=== PATIENT | male | born 1960 | race Caucasian/White ===

== ENCOUNTER 2019-11-06 17:35 | Emergency (ER) | payer MEDICARE, SELFPAY ==
[2019-11-06 18:02] VITALS: BP 164/77; PULSE 88; RESP 18; TEMP 37.1; O2SAT 93; BMI 30.4
[2019-11-06 18:14] VITALS: BP 164/77; PULSE 84; RESP 20; TEMP 37.9; O2SAT 94
--- NOTE | 2019-11-06 18:57 | XRR_ITS ---
PROCEDURE INFORMATION: Exam: XR Chest, 1 View Exam date and time: 11/06/2019 7:14 PM Age: 59 years old Clinical indication: Fever TECHNIQUE: Imaging protocol: XR of the chest Views: 1 view. COMPARISON: No relevant prior studies available. FINDINGS: Lungs: Tiny pulmonary nodule left mid lung overlying the rib most likely granuloma. No visible active interstitial or alveolar airspace disease. Pleural space: Unremarkable. No pleural effusion. No pneumothorax. Heart/Mediastinum: Unremarkable. No cardiomegaly. Bones/joints: Unremarkable. Other findings: Suspected mislabeled left versus right. XR/XR chest 1V portable [id number] IMPRESSION: Nonacute.
[2019-11-06 19:15] LABS: Basophils % 0.4 %; Eosinophils % 0.1 %; Hematocrit 40.3 % (42.0-52.0); Hemoglobin 13.2 g/dL (11.7-16.6); Lymphocytes % 10.9 %; Mean Corpuscular HGB Conc 32.8 g/dL (30.0-36.0); Mean Corpuscular Hemoglobin 29.7 pg (28.0-34.0); Mean Corpuscular Volume 90.8 fL (80-94); Monocytes % 10.5 %; Neutrophils # 7.03 10^3/uL (1.8-7.7); Neutrophils % 77.9 %; Nucleated Red Blood Cells % 0 %; Platelet Count 201 10^3/cmm (130-400); Red Blood Count 4.44 10^6/uL (4.1-5.3); Red Cell Distribution Width 12.7 % (12.1-15.1)
[2019-11-06] MEDS: sodium chloride 0.9% 1,000 ML 999 ML IV ×2 (19:20→21:35)
[2019-11-06 19:28] LABS: INR 1.01 (0.8-1.2)
[2019-11-06 19:29] LABS: Fibrinogen 601 mg/dL (174-498)
[2019-11-06 19:31] LABS: D Dimer 0.98 ug/mIFEU (0-0.59)
[2019-11-06 19:38] LABS: Alanine Aminotransferase 19 U/L (0-41); Albumin Level 3.8 g/dL (3.5-5.2); Alkaline Phosphatase 62 IU/L (40-130); Aspartate Amino Transferase 21 U/L (0-40); Blood Urea Nitrogen 13 mg/dL (8-23); C Reactive Protein 61.4 mg/L (0.0-4.9); Calcium 8.5 mg/dL (8.5-10.5); Carbon Dioxide 24 mmol/L (22-29); Chloride 96 mmol/L (98-107); Creatine Phosphokinase 136 U/L (39-308); Ferritin 371 ng/mL (30-400); Globulin 4.1 g/dL (1.3-4.6); Glucose 96 mg/dL (65-115); Lipase 35 U/L (13-60); Osmolality Calculated 276 mOsm/kg (285-295); Sodium 133 mmol/L (136-145); Total Bilirubin 0.4 mg/dL (0.15-1.2); Total Protein 7.9 g/dL (6.6-8.7)
[2019-11-06 19:52] LABS: Anion Gap 16.8 (5-19); Lactate Dehydrogenase 249 U/L (135-225); Potassium 3.8 mmol/L (3.5-5.1)
[2019-11-06 20:09] VITALS: BP 121/68; PULSE 81; RESP 18; O2SAT 93
[2019-11-06 20:13] LABS: Lactic Sepsis W/Reflex 1.6 mmol/L (0.5-2.2)
[2019-11-06 20:21] LABS: SARS Covid-2 Antigen Positive (Negative)
[2019-11-06 20:39] LABS: Influenza A by IFA Negative (Negative); Influenza B by IFA Negative (Negative)
[2019-11-06 21:00] VITALS: BP 124/78; PULSE 84; RESP 24; O2SAT 94
--- NOTE | 2019-11-06 21:47 | ED_ITS ---
HPI - Nausea/Vomiting/Diarrhea General: Chief complaint: Nausea/Vomiting/Diarrhea Stated complaint: n/d Time Seen by Provider: 11/06/19 17:58 Source: patient and family () Mode of arrival: ambulatory Limitations: no limitations History of Present Illness: HPI Narrative: 59-year-old male who presents to the emergency department with a 3-day history of diarrhea. He denies any nausea or vomiting. Denies abdominal pain. He feels weak and dehydrated. He denies any sick contacts. MD elicited complaint: diarrhea Onset (ago): day(s) (3) Description of diarrhea: watery Associated nausea: No Associated abdominal pain: No Severity: moderate Exacerbating factors: none Relieving factors: none Associated symtoms: Reports fatigue, fevers/chills, anorexia and malaise; Denies altered mental status, anxiety, bloating, change in vision, chest pain, cough, diaphoresis, decreased urine output, dizziness, dysuria, epistaxis, fecal incontinence, headache(s), myalgias, nausea, numbness, palpitations, rash, short of breath, syncope, tenesmus, tinnitus or weakness Review of Systems General: Reports: 10 or more systems reviewed and unremarkable except in HPI and below Const: Reports: fatigue and malaise; Denies: diaphoresis Eyes: Denies: change in vision ENMT: Denies: tinnitus or epistaxis Card: Denies: chest pain, palpitations or syncope Resp: Denies: dyspnea, productive cough or non-productive cough GI: Denies: nausea, bloating or fecal incontinence : Denies: dysuria Musc: Denies: neck pain, back pain or extremity swelling Skin/Breast: Denies: rash, pruritus or erythema Neuro: Denies: headache(s) or dizziness Psych: Denies: anxiety Endo: Denies: polyuria, polydipsia or tired all the time PFSH ED PFSH: Social History Smoking and tobacco status: never smoked Alcohol intake: never Lives independently: No Household members: spouse Housing: House Marital status: Number of children: 3 Current occupational status: disabled Sexually active: No Special rajeev needs: No Physical Exam Const: COMMON NORMALS: no acute distress, average body habitus, patient oriented x3, no limitations, healthy appearing, alert and well nourished EXAM LIMITATIONS: no altered mental status HENMT: COMMON NORMALS: normocephalic, atraumatic and moist oral mucous membranes HEAD & SCALP: normocephalic and atraumatic Neck/C-Spine: COMMON NORMALS: no meningeal signs and no JVD Resp: COMMON NORMALS: normal respiratory effort, No retractions, No use of accessory muscles, clear to auscultation bilaterally and percussion normal AUSCULTATION: clear to auscultation bilaterally PERCUSSION: percussion normal Cardio: COMMON NORMALS: no JVD, regular rate, regular rhythm, S1 normal heart sound present, S2 normal heart sound present, No gallops present (Cardio), No clicks present (Cardio), No murmurs present (Cardio), No rub (Cardio) and Peripheral pulses 2+ throughout RATE: regular rate RHYTHM: regular rhythm HEART SOUNDS: S1 normal heart sound present and S2 normal heart sound present PERIPHERAL PULSES: Peripheral pulses 2+ throughout GI: COMMON NORMALS: Normal to inspection, nondistended, normoactive bowel sounds present, Soft to palpation, non-tender, No hepatosplenomegaly present, no masses and no bruits PALPATION: Yes Soft to palpation and Yes No hepatosplenomegaly present : COMMON NORMALS: Yes no CVA tenderness BLADDER/KIDNEY EXAM: Yes no CVA t enderness Back/Pelvis: COMMON NORMALS: no CVA tenderness Extremity: COMMON NORMALS: normal to inspection, full ROM, capillary refill normal, no calf tenderness and no pedal edema Neuro: COMMON NORMALS: patient oriented x3 SENSORIUM/ORIENTATION: Yes alert MENINGEAL SIGNS: Yes no meningeal signs Skin: COMMON NORMALS: no rashes or lesions noted, no wounds, turgor normal, no jaundice, no petechiae and no mottling GENERAL SKIN EXAM: no rashes or lesions noted and turgor normal Course Reevaluation(s): Reevaluation #1: Discussed his lab and imaging findings with him. He tested positive for COVID-19 viral infection. Other labs unremarkable. His pulse oxygenation has been good ranging between 94 and 95 on room air. Chest x-ray was fine. Advised that he does not want admission criteria and he is advised to get a pulse oximeter and monitor his respiratory status. He is told that if he becomes hypoxic, with pulse oximetry reading less than or equal to 90 then he needs to return for evaluation. He should also return if he has any concerns such as dyspnea. Patient and his voiced understanding and they are in agreement with the plan Time: 21:47 Vital Signs: Vital signs: Vital Signs Temperature 99.9 F H 11/06/19 22:37 Pulse Rate 76 11/06/19 22:37 Respiratory Rate 22 H 11/06/19 22:37 Blood Pressure 132/64 11/06/19 22:37 Pulse Oximetry 94 11/06/19 22:37 MDM - Nausea/Vomiting/Diarrhea MDM Narrative: Medical decision making narrative: 59-year-old gentleman with a viral enteritis. He has enteritis secondary to COVID-19. He is hemodynamically stable, pulse oximetry reading has been fine on room air. He is discharged home on conservative measures Medical Records: Attestation: I reviewed the patient's medical records. Lab Data: Attestation: I reviewed the patient's lab results. Labs: Lab Results 11/06/19 11/06/19 11/06/19 Range/Units 18:42 18:42 18:42 WBC 9.0 (4.0-10.0) 10^3/ uL RBC 4.44 (4.1-5.3) 10^6/u L Hgb 13.2 (11.7-16.6) g/dL Hct 40.3 L (42.0-52.0) % MCV 90.8 (80-94) fL MCH 29.7 (28.0-34.0) pg MCHC 32.8 (30.0-36.0) g/dL RDW 12.7 (12.1-15.1) % Plt Count 201 (130-400) 10^3/c mm MPV 9.0 (7.4-10.4) fL Neut % (Auto) 77.9 % Lymph % (Auto) 10.9 % [place] % (Auto) 10.5 % Eos % (Auto) 0.1 % Baso % (Auto) 0.4 % Neut # (Auto) 7.03 (1.8-7.7) 10^3/u L Lymph # (Auto) 1.0 (0.8-4.8) 10^3/u L [place] # (Auto) 1.0 H (0.2-0.9) 10^3/u L Eos # (Auto) 0.0 (0.0-0.8) 10^3/u L Baso # (Auto) 0.0 (0.0-0.1) 10^3/u L Nucleated RBC % (a uto) 0 % Nucleated RBCs # 0.0 /100WBC PT 13.60 (12.1-14.9) SECO NDS INR 1.01 (0.8-1.2) Fibrinogen 601 H (174-498) mg/dL D-Dimer 0.98 H (0-0.59) ug/mIFE U Sodium 133 L (136-145) mmol/L Potassium 3.8 (3.5-5.1) mmol/L Chloride 96 L (98-107) mmol/L Carbon Dioxide 24 (22-29) mmol/L Anion Gap 16.8 (5-19) BUN 13 (8-23) mg/dL Creatinine 1.0 (0.7-1.2) mg/dL GFR Calculation 76.0 L (90-130) mL/min Glucose 96 (65-115) mg/dL Calculated Osmolal ity 276 L (285-295) mOsm/k g Lactic Acid Calcium 8.5 (8.5-10.5) mg/dL Ferritin 371 (30-400) ng/mL Total Bilirubin 0.4 (0.15-1.2) mg/dL AST 21 (0-40) U/L ALT 19 (0-41) U/L Alkaline Phosphata se 62 (40-130) IU/L Lactate Dehydrogen ase 249 H (135-225) U/L Creatine Kinase 136 (39-308) U/L C-Reactive Protein 61.4 H (0.0-4.9) mg/L Total Protein 7.9 (6.6-8.7) g/dL Albumin 3.8 (3.5-5.2) g/dL Globulin 4.1 (1.3-4.6) g/dL Lipase 35 (13-60) U/L Influenza Type A A g (Negative) Influenza Type B A g (Negative) SARS-CoV-2 Ag (Rap id) (Negative) 11/06/19 11/06/19 11/06/19 Range/Units 18:42 19:30 19:30 WBC (4.0-10.0) 10^3/ uL RBC (4.1-5.3) 10^6/u L Hgb (11.7-16.6) g/dL Hct (42.0-52.0) % MCV (80-94) fL MCH (28.0-34.0) pg MCHC (30.0-36.0) g/dL RDW (12.1-15.1) % Plt Count (130-400) 10^3/c mm MPV (7.4-10.4) fL Neut % (Auto) % Lymph % (Auto) % [place] % (Auto) % Eos % (Auto) % Baso % (Auto) % Neut # (Auto) (1.8-7.7) 10^3/u L Lymph # (Auto) (0.8-4.8) 10^3/u L [place] # (Auto) (0.2-0.9) 10^3/u L Eos # (Auto) (0.0-0.8) 10^3/u L Baso # (Auto) (0.0-0.1) 10^3/u L Nucleated RBC % (a uto) % Nucleated RBCs # /100WBC PT (12.1-14.9) SECO NDS INR (0.8-1.2) Fibrinogen (174-498) mg/dL D-Dimer (0-0.59) ug/mIFE U Sodium (136-145) mmol/L Potassium (3.5-5.1) mmol/L Chloride (98-107) mmol/L Carbon Dioxide (22-29) mmol/L Anion Gap (5-19) BUN (8-23) mg/dL Creatinine (0.7-1.2) mg/dL GFR Calculation (90-130) mL/min Glucose (65-115) mg/dL Calculated Osmolal ity (285-295) mOsm/k g Lactic Acid Cancelled Calcium (8.5-10.5) mg/dL Ferritin (30-400) ng/mL Total Bilirubin (0.15-1.2) mg/dL AST (0-40) U/L ALT (0-41) U/L Alkaline Phosphata se (40-130) IU/L Lactate Dehydrogen ase (135-225) U/L Creatine Kinase (39-308) U/L C-Reactive Protein (0.0-4.9) mg/L Total Protein (6.6-8.7) g/dL Albumin (3.5-5.2) g/dL Globulin (1.3-4.6) g/dL Lipase (13-60) U/L Influenza Type A A g Negative (Negative) Influenza Type B A g Negative (Negative) SARS-CoV-2 Ag (Rap id) Positive H (Negative) 11/06/19 Range/Units 19:34 WBC (4.0-10.0) 10^3/ uL RBC (4.1-5.3) 10^6/u L Hgb (11.7-16.6) g/dL Hct (42.0-52.0) % MCV (80-94) fL MCH (28.0-34.0) pg MCHC (30.0-36.0) g/dL RDW (12.1-15.1) % Plt Count (130-400) 10^3/c mm MPV (7.4-10.4) fL Neut % (Auto) % Lymph % (Auto) % [place] % (Auto) % Eos % (Auto) % Baso % (Auto) % Neut # (Auto) (1.8-7.7) 10^3/u L Lymph # (Auto) (0.8-4.8) 10^3/u L [place] # (Auto) (0.2-0.9) 10^3/u L Eos # (Auto) (0.0-0.8) 10^3/u L Baso # (Auto) (0.0-0.1) 10^3/u L Nucleated RBC % (a uto) % Nucleated RBCs # /100WBC PT (12.1-14.9) SECO NDS INR (0.8-1.2) Fibrinogen (174-498) mg/dL D-Dimer (0-0.59) ug/mIFE U Sodium (136-145) mmol/L Potassium (3.5-5.1) mmol/L Chloride (98-107) mmol/L Carbon Dioxide (22-29) mmol/L Anion Gap (5-19) BUN (8-23) mg/dL Creatinine (0.7-1.2) mg/dL GFR Calculation (90-130) mL/min Glucose (65-115) mg/dL Calculated Osmolal ity (285-295) mOsm/k g Lactic Acid 1.6 Calcium (8.5-10.5) mg/dL Ferritin (30-400) ng/mL Total Bilirubin (0.15-1.2) mg/dL AST (0-40) U/L ALT (0-41) U/L Alkaline Phosphata se (40-130) IU/L Lactate Dehydrogen ase (135-225) U/L Creatine Kinase (39-308) U/L C-Reactive Protein (0.0-4.9) mg/L Total Protein (6.6-8.7) g/dL Albumin (3.5-5.2) g/dL Globulin (1.3-4.6) g/dL Lipase (13-60) U/L Influenza Type A A g (Negative) Influenza Type B A g (Negative) SARS-CoV-2 Ag (Rap id) (Negative) Imaging Data^: CXR: My impression: Patient with dextrocardia Radiologist's impression: [address] [address] XRay Report Signed with Addenda Patient: Jackie Moran #: [id number] : 9Acct#:[id number] Age/Sex: 59 / MADM Date: 11/06/19 Loc: [facility]/Bed: Attending Dr: Ordering Provider/Ordering MD: Steven Sanders [place] [facility] [place]: 11/06/19 Procedure(s): XR chest 1V portable [id number] Accession Number(s): [id number] Report Number: [id number] ADDENDUM XR/XR chest 1V portable [id number] re: [facility]achel pt has a condition where the heart is on the other side. Confirmed examination properly marked. Patient with dextrocardia. Unable to evaluate for situs inversus totalis. Addendum Dictated By: Darien Blankenship Addendum Signed By: Medhat Blankenship Date/Time:11/06/192152 Addendum Cosigned By: PROCEDURE INFORMATION: Exam: XR Chest, 1 View Exam date and time: 11/06/2019 7:14 PM Age: 59 years old Clinical indication: Fever TECHNIQUE: Imaging protocol: XR of the chest Views: 1 view. COMPARISON: No relevant prior studies available. FINDINGS: Lungs: Tiny pulmonary nodule left mid lung overlying the rib most likely granuloma. No visible active interstitial or alveolar airspace disease. Pleural space: Unremarkable. No pleural effusion. No pneumothorax. Heart/Mediastinum: Unremarkable. No cardiomegaly. Bones/joints: Unremarkable. Other findings: Suspected mislabeled left versus right. XR/XR chest 1V portable [id number] IMPRESSION: Nonacute. Dictated By:Darien Blankenship Signed By:Medhat Blankenship Date/Time:11/06/192133 DD/ 32 Discharge Plan Discharge Patient Disposition: Home Clinical Impression: COVID-19 virus detected, Enteritis due to specified virus Condition: Stable Prescriptions: Continued lisinopril 10 mg tablet 10 mg PO DAILY RF: 0 omeprazole 20 mg tablet,delayed release (DR/EC) 20 mg PO DAILY RF: 0 trazodone 50 mg Tablet 50 mg PO BEDTIME PRN (Reason: Sleep) RF: 0 tramadol 50 mg Tablet 50 mg PO Q6H PRN (Reason: Pain) RF: 0 Discharge Orders: Discharge Order (Routine); Ordered 11/06/19 Ordered By: Steven Sanders Referrals: Danny Husain Jr, MD [Primary Care Provider] - 1-3 days Discharge Diet: Advance as tolerated Discharge Activity: Increase activity as tolerated Patient Instructions: Gastroenteritis (ED) Activity Restrictions/Additional Instructions: Return for any new or worsening symptoms. Obtain a pulse oximeter from the drug store and check your oxygen levels frequently, especially if you feel short of breath. If your oxygen levels drop below 90 beats a you need to be evaluated urgently in the emergency department. Follow-up with your primary care provider within 3 days. Discharge Date/Time: 11/06/19 22:35 Coding Level of Care Code ED Certified Residential Medication Aide for Barbarag Kari
[2019-11-06 22:00] VITALS: BP 136/78; PULSE 80; RESP 18; O2SAT 94
[2019-11-06 22:37] VITALS: BP 132/64; PULSE 76; RESP 22; TEMP 37.7; O2SAT 94
== END 2019-11-06 22:35 | disposition home or self-care (01) ==
PROVIDERS: Emergency Provider Family Medicine; PCP Family Medicine
DX: U07.1 COVID-19 (principal); A08.39 Other viral enteritis
CPT/HCPCS: 12345; 36415; 71045; 80053; 82550; 82728; 83605; 83615; 83690; 85025; 85378; 85384; 85610; 86140; 87040; 87426; 87804; 96360; 96361; 99284; J7030